=== PATIENT | female | born 1930 | race Caucasian/White ===

== ENCOUNTER 2017-02-04 13:00 | Inpatient (IN) | payer MEDICARE, OTHER ==
[~2017-02-04] VITALS: Ht 160 cm; Wt 61.6 kg
[2017-02-04 00:10] VITALS: BP 132/72
[2017-02-04] MEDS ORDERED: ALBUTEROL SULF 2.5 MG/0.5ML(0.5%) NEB SOLN HHN ONE (13:45)
[2017-02-04] MEDS ORDERED: IPRATROPIUM BROM 0.5 MG/2.5ML INH SOL HHN ONE (13:45)
[2017-02-04 14:14] LABS: Basophils # (auto) 0 uL; Basophils % (auto) 0.7 % (0.0-2.0); Eosinophils # (auto) 0.1 uL; Eosinophils % (auto) 2.1 % (0.0-7.0); Hematocrit 48.3 % (36.0-46.0); Hemoglobin 16.6 g/dL (12.2-16.2); Lymphocytes # (auto) 1.6 uL; Lymphocytes % (auto) 22.6 % (10.0-50.0); Mean Corpuscular Hemoglobin 30.6 pg (28.0-32.0); Mean Corpuscular Hgb Conc. 34.3 g/dL (32.0-36.0); Mean Corpuscular Volume 89.3 fL (80.0-100.0); Mean Platelet Volume 8.3 fL (6.9-10.8); Monocytes # (auto) 0.9 uL; Monocytes % (auto) 12.5 % (0.0-12.0); Neutrophils # (auto) 4.3 uL; Neutrophils % (auto) 62.1 % (37.0-80.0); Nucleated Red Blood Cells % 0.1 %; Platelet Count (auto) 172 10^3/uL (140-450); White Blood Cell 6.9 10^3/uL (4.4-10.8)
[2017-02-04 14:32] LABS: Lactic Acid w/Reflex 2.4 mmol/L (0.4-2.0)
[2017-02-04 14:36] LABS: Albumin 3.4 g/dL (3.4-5.0); BUN/Creatinine Ratio 29.9; Bilirubin, Total 0.8 mg/dL (0.2-1.0); Calcium 8.6 mg/dL (8.5-10.1); Magnesium 2.5 mg/dL (1.6-2.6); Potassium 3.7 mmol/L (3.5-5.1); REFLEX LACTIC ACID YES OR NO YES; Total Protein 6.8 g/dL (6.4-8.2)
[2017-02-04 14:39] LABS: B-Type Natriuretic Peptide 84.37 pg/mL (0-100)
[2017-02-04 14:40] LABS: Temperature: 22.2 C (20.0-25.0)
[2017-02-04] MEDS ORDERED: ASPirin-EC 81 mg tab PO ONE (15:45)
[2017-02-04] MEDS ORDERED: cefTRIAXone 1GM/10ml IVPUSH 10 ML IV ONE (15:45)
[2017-02-04] MEDS ORDERED: MORPHINE SULF INJ 2 MG/ML SYRINGE 1ML IV PRN (17:00)
[2017-02-04] MEDS ORDERED: POTA10TA34 PO (18:14)
[2017-02-04] MEDS ORDERED: ATEN-60 PO (18:14)
[2017-02-04] MEDS ORDERED: ISOS60TA24 PO (18:14)
[2017-02-04] MEDS ORDERED: FAM20T PO (18:14)
[2017-02-04] MEDS ORDERED: LOSA25TA9 PO (18:14)
[2017-02-04] MEDS ORDERED: PRAV20TA3 PO (18:14)
[2017-02-04] MEDS ORDERED: CLOP75TA41 PO (18:14)
[2017-02-04] MEDS ORDERED: LEVO50TA7 PO (18:14)
[2017-02-04] MEDS ORDERED: FURO20TA3 PO (18:14)
[2017-02-04] MEDS ORDERED: RANO500T2 PO (18:14)
[2017-02-04] MEDS: FAMOTIDINE 20 MG TAB PO SCH (18:58)
[2017-02-04] MEDS: D5W/SOD CHL 0.45% 1,000 ML IV SCH (18:58)
[2017-02-04] MEDS: ALBUTEROL SULF 2.5 MG/0.5ML(0.5%) NEB SOLN NEB SCH (19:33)
[2017-02-04 21:40] VITALS: BP 145/55
[2017-02-04] MEDS: NITROGLYCERIN 0.4 MG SL TAB SL PRN (23:42)
[2017-02-04] MEDS ORDERED: MORPHINE SULF INJ 2 MG/ML SYRINGE 1ML ONE (23:44)
[2017-02-04 23:47] VITALS: BP 80/53
[2017-02-05] VITALS (7 sets, daily range): BP systolic 99–142; BP diastolic 65–95
[2017-02-05] MEDS ORDERED: DILTIAZEM HCL 25 MG/5 ML VIAL IV ONE ×4 (00:06→14:00)
[2017-02-05] MEDS: ALBUTEROL SULF 2.5 MG/0.5ML(0.5%) NEB SOLN NEB SCH (00:41)
[2017-02-05] MEDS ORDERED: METOPROLOL TARTRATE 1MG/1ML-5ML VIAL IV ONE ×2 (00:45→01:10)
[2017-02-05] MEDS ORDERED: DIGOXIN (250MCG/ML) 2 ML AMPULE IV ONE ×3 (00:45→18:45)
[2017-02-05] MEDS ORDERED: DIGOXIN (250MCG/ML) 2 ML AMPULE ONE (00:49)
[2017-02-05] MEDS ORDERED: METOPROLOL TARTRATE 1MG/1ML-5ML VIAL IV SCH (02:00)
[2017-02-05] MEDS ORDERED: METOPROLOL TARTRATE 1MG/1ML-5ML VIAL IV PRN (05:15)
[2017-02-05] MEDS: DILTIAZEM HCL 25 MG/5 ML VIAL IV PRN ×2 (05:30→12:28)
[2017-02-05] MEDS: FAMOTIDINE 20 MG TAB PO SCH (09:30)
[2017-02-05] MEDS: cefTRIAXone 1GM/10ml IVPUSH 10 ML IV SCH (09:30)
[2017-02-05] MEDS ORDERED: AZITHROMYCIN 500MG/ 250ML 250 ML IV SCH (10:00)
[2017-02-05] MEDS: D5W/SOD CHL 0.45% 1,000 ML IV SCH (13:26)
[2017-02-05] MEDS: METOPROLOL TARTRATE 25 MG TAB PO SCH ×2 (13:32→22:20)
[2017-02-05] MEDS: ENOXAPARIN SOD 60 MG/0.6 ML SYRINGE SC ONE (14:00)
[2017-02-05] MEDS ORDERED: AMIODARONE HCL 200 MG TAB PO ONE (14:00)
[2017-02-05] MEDS ORDERED: HEPARIN DRIP/D5W 100UNITS/ML 250 ML IV SCH (14:53)
[2017-02-05] MEDS ORDERED: BOOST 8 ounces PO SCH (18:00)
[2017-02-05 19:11] LABS: Urine Bilirubin Negative (Negative); Urine Blood Negative /uL (Negative); Urine Color Yellow (Yellow); Urine Glucose Normal (Normal); Urine Ketone Negative (Negative); Urine Nitrite Negative (Negative); Urine RBC 2 /hpf (0 - 4); Urine Urobilinogen Normal (Negative); Urine pH 5.5 (5.0-8.0)
[2017-02-05] MEDS: BOOST 8 ounces PO SCH (22:00)
[2017-02-05] MEDS: AMIODARONE HCL 200 MG TAB PO SCH (22:17)
[2017-02-06 05:35] LABS: Basophils # (auto) 0 uL; Basophils % (auto) 0.6 % (0.0-2.0); Eosinophils # (auto) 0.2 uL; Eosinophils % (auto) 2.4 % (0.0-7.0); Hematocrit 43.5 % (36.0-46.0); Hemoglobin 15.4 g/dL (12.2-16.2); Lymphocytes # (auto) 2.1 uL; Lymphocytes % (auto) 30.3 % (10.0-50.0); Mean Corpuscular Hemoglobin 31.1 pg (28.0-32.0); Mean Corpuscular Hgb Conc. 35.3 g/dL (32.0-36.0); Mean Corpuscular Volume 87.9 fL (80.0-100.0); Mean Platelet Volume 8.6 fL (6.9-10.8); Monocytes # (auto) 0.7 uL; Monocytes % (auto) 10.6 % (0.0-12.0); Neutrophils % (auto) 56.1 % (37.0-80.0); Nucleated Red Blood Cells % 0.1 %; Platelet Count (auto) 149 10^3/uL (140-450); Red Cell Distribution Width 13.8 % (11.8-14.3); White Blood Cell 7.1 10^3/uL (4.4-10.8)
[2017-02-06 05:38] VITALS: BP 136/63
[2017-02-06 05:48] LABS: INR 1.02 (0.9-1.15); Prothrombin Time 11.1 sec (9.37-12.3)
[2017-02-06 06:07] LABS: BUN/Creatinine Ratio 27.3; Calcium 7.9 mg/dL (8.5-10.1); Potassium 3.7 mmol/L (3.5-5.1)
[2017-02-06] MEDS: NITROGLYCERIN 0.4 MG SL TAB SL PRN (06:26)
[2017-02-06 06:32] VITALS: BP 112/62
[2017-02-06 08:00] VITALS: BP 117/73
[2017-02-06] MEDS: D5W/SOD CHL 0.45% 1,000 ML IV SCH (09:57)
[2017-02-06] MEDS: cefTRIAXone 1GM/10ml IVPUSH 10 ML IV SCH (09:57)
[2017-02-06] MEDS: AMIODARONE HCL 200 MG TAB PO SCH ×2 (09:58→22:35)
[2017-02-06] MEDS: BOOST 8 ounces PO SCH ×2 (09:59→22:36)
[2017-02-06] MEDS: FAMOTIDINE 20 MG TAB PO SCH (09:59)
[2017-02-06] MEDS: METOPROLOL TARTRATE 25 MG TAB PO SCH ×2 (09:59→22:35)
[2017-02-06 12:00] VITALS: BP 160/81
[2017-02-06] MEDS ORDERED: MIDAZOLAM HCL 1MG/1ML-2 ML VIAL ONE (13:45)
[2017-02-06] MEDS ORDERED: ANGIOMAX 250 MG VIAL IV ONE (13:45)
[2017-02-06] MEDS ORDERED: fentaNYL CITRATE 100 MCG/2 ML VL ONE (13:45)
[2017-02-06] MEDS ORDERED: LIDOCAINE 2%HCL (LOCAL ANESTH.) INJ 20ML MDV ONE (13:55)
[2017-02-06] MEDS ORDERED: IOHEXOL 350 MG/ML 100ML IJ ONE (13:55)
[2017-02-06 17:00] VITALS: BP 156/72
[2017-02-06 22:00] VITALS: BP 127/48
[2017-02-07 01:07] LABS: Thyroxine (T4) 6.5 ug/dL (4.5-12.0)
[2017-02-07 05:00] VITALS: BP 130/66
[2017-02-07] MEDS: D5W/SOD CHL 0.45% 1,000 ML IV SCH (05:00)
[2017-02-07] MEDS ORDERED: IOHEXOL 350 MG/ML 100ML IJ ONE (07:22)
[2017-02-07 08:17] VITALS: BP 128/94
[2017-02-07] MEDS: cefTRIAXone 1GM/10ml IVPUSH 10 ML IV SCH (09:56)
[2017-02-07] MEDS: AMIODARONE HCL 200 MG TAB PO SCH (09:56)
[2017-02-07] MEDS: FAMOTIDINE 20 MG TAB PO SCH (09:56)
[2017-02-07] MEDS: METOPROLOL TARTRATE 25 MG TAB PO SCH (09:57)
[2017-02-07] MEDS: BOOST 8 ounces PO SCH (09:57)
[2017-02-07 13:00] VITALS: BP 158/78
[2017-02-07 16:14] VITALS: BP 153/83
[2017-02-07 16:18] VITALS: BP 142/71
== END 2017-02-07 17:45 | disposition home or self-care (01) | DRG 280 ==
LOC: EDBD 13:00 → ER 13:12 → TELE 13:13 → TELE-WESTW 18:26
PROVIDERS: ADMIT Specialist; ATTEND Internal Medicine
PROC: B41F1ZZ Fluoroscopy of Right Lower Extremity Arteries using Low Osmolar Contrast (ICD-10-PCS; principal; 2017-02-06)
DX: I21.4 Non-ST elevation (NSTEMI) myocardial infarction (principal); J18.9 Pneumonia, unspecified organism; J44.0 Chronic obstructive pulmonary disease with (acute) lower respiratory infection; I13.0 Hypertensive heart and chronic kidney disease with heart failure and stage 1 through stage 4 chronic kidney disease, or unspecified chronic kidney disease; I48.91 Unspecified atrial fibrillation; I50.9 Heart failure, unspecified; J44.1 Chronic obstructive pulmonary disease with (acute) exacerbation; J20.8 Acute bronchitis due to other specified organisms; E78.5 Hyperlipidemia, unspecified; I25.10 Atherosclerotic heart disease of native coronary artery without angina pectoris; I73.9 Peripheral vascular disease, unspecified; N18.9 Chronic kidney disease, unspecified; F41.9 Anxiety disorder, unspecified; Z90.49 Acquired absence of other specified parts of digestive tract; Z82.49 Family history of ischemic heart disease and other diseases of the circulatory system; Z79.899 Other long term (current) drug therapy
CPT/HCPCS: 36415; 71010; 71250; 75635; 80048; 80053; 81001; 83605; 83735; 83880; 84443; 84484; 85025; 85610; 85730; 86850; 86900; 86901; 87040; 93005; 93926; 94640; 94761; 96365; 99152; J2250